=== PATIENT | female | born 1990 | race African-American/Black ===

== ENCOUNTER 2024-01-08 14:06 | Observation (INO) ==
[2024-01-08] MEDS: XOPENEX 1.25 MG/3 ML NEBULE NEB ONE ×4 (14:17→17:08)
--- NOTE | 2024-01-08 14:19 | DR.SOBA ---
HPI Time Seen Time Seen by Provider: 01/08/24 14:18 Complaints Chief Complaint Doctors Comments: Patient went to [facility] at approx. 6:00am today. She has a h/o asthma and was sob with chest tightness.Patient states that she was given an iv steroid, neb treatment and d/c home with: Albuterol/prednisone 50mg po daily,and an Rx for a nebulizer.Patient went to [facility] and was told that she could not get the machine because they did not have any at the facility in which she was shopping. Patient went home and began to have worsening sob,palpitations,accessory muscle use.Mother became concerned and brought patient to the ED. Patient has had these sxs for 2 days.Patient denies: fever,n,v,syncope,dizziness,lightheadedness. ROS Review of Systems Constitutional: No Symptoms Reported Eyes: No Symptoms Reported ENTM: No Symptoms Reported Respiratoy: Dry Cough, Short of Breath and Wheezing; negative Productive Cough Cardiovascular: Chest Pain (chest tightness) Gastrointestinal/Abdominal: No Symptoms Reported Genitourinary: No Symptoms Reported Neurological: No Symptoms Reported Musculoskeletal: No Symptoms Reported Integumentary: No Symptoms Reported Hematologic/Lymphatic: No Symptoms Reported Endocrine: No Symptoms Reported Psychiatric: No Symptoms Reported All Other Systems: Reviewed and Negative PE Vital Signs Vitals: Vital Signs Temperature 98.4 F Pulse Rate 107 Pulse Rate 119 Pulse Rate 121 Pulse Rate 114 Pulse Rate 120 Pulse Rate 115 Pulse Rate 104 Pulse Rate 125 Pulse Rate 120 Pulse Rate 118 Pulse Rate 123 Respiratory Rate 18 Blood Pressure 136/69 Blood Pressure 147/83 Blood Pressure 135/78 Blood Pressure 118/76 Blood Pressure 113/74 Blood Pressure 120/76 Blood Pressure 130/92 O2 Sat by Pulse Oximetry 100 O2 Sat by Pulse Oximetry 100 O2 Sat by Pulse Oximetry 97 O2 Sat by Pulse Oximetry 100 O2 Sat by Pulse Oximetry 95 O2 Sat by Pulse Oximetry 98 O2 Sat by Pulse Oximetry 92 O2 Sat by Pulse Oximetry 97 O2 Sat by Pulse Oximetry 99 O2 Sat by Pulse Oximetry 98 O2 Sat by Pulse Oximetry 92 General Limitations: No Limitations General Appearance: Alert and In Distress; negative In No Apparent Distress Head Head Exam: Normal Inspection Eyes Eye exam: Normal Appearance and PERRL ENT ENT Exam: Normal Exam Neck Neck Exam: Normal Inspection Chest Chest Inspection: Normal Inspection; negative Rash Respiratory Respiratory Exam: Accessory Muscle Use Respiratory Exam: Bilateral: Wheezing Cardiovascular Cardiovascular Exam: Normal Rhythm and Tachycardia Abdominal Exam Abdominal Exam: Normal Inspection, Normal Bowel Sounds and Soft Extremities Extremities Exam: Normal Inspection Back Back Exam: Normal Inspection Neurologic Neurological Exam: Alert and Oriented X3 Psychiatric Psychiatric Exam: Normal Affect and Normal Mood Skin Skin Exam: Warm, Dry, Intact and Normal Color MDM Differential Diagnosis Differential Diagnosis: Asthma, Pneumonia and Other (Electrolyte disorder) COURSE Treatment Treatment: Patient was brought to a monitored room IV access was initiated and patient had a heart rate of 123 therefore she received Xopenex neb treatment. Patient's patient states that she was still feeling short of breath and an ABG revealed a pH of 7.4/pO2 76/pCO2 32/O2 sat 95%. Patient had received the neb treatment prior to ABG collection. Subsequently patient began to complain of feeling more short of breath and her room air O2 sat decreased to the 80s. Patient was placed on 2 L O2 per nasal cannula. 16:[address] Jordan. He accepted patient to his service for an asthma exacerbation. Patient was given 2 additional Xopenex neb treatments and Solu-Medrol 40 mg IV. A review of patient's labs and tests revealed: Chest x-ray no acute process, WBC 11.7, BNP 14.4, CO2 20. Patient's EKG revealed a rate of 102 sinus tachycardia. [facility] Labs Reviewed 01/08/24 14:55 01/08/24 14:55 Laboratory: WBC 11.3 X10^3/uL (3.6-10.0) H 01/08/24 14:55 RBC 4.13 X10^6/uL (3.5-5.4) 01/08/24 14:55 Hgb 13.4 g/dL (12.0-16.0) 01/08/24 14:55 Hct 40.7 % (36.0-47.0) 01/08/24 14:55 MCV 98.6 fL (80.0-100.0) 01/08/24 14:55 MCH 32.5 pg (27.0-34.0) 01/08/24 14:55 MCHC 32.9 g/dL (33.0-35.0) L 01/08/24 14:55 RDW 13.8 % (11.6-16.5) 01/08/24 14:55 Plt Count 347 X10^3/uL (150.0-450.0) 01/08/24 14:55 Plt Count Comment Adequate (ADEQUATE) 01/08/24 14:55 MPV 8.8 fL (7.4-11.0) 01/08/24 14:55 Neut % (Auto) 91.4 % (42.0-75.0) H 01/08/24 14:55 Lymph % (Auto) 5.5 % (21.0-51.0) L 01/08/24 14:55 Forest % (Auto) 2.8 % (0.0-13.0) 01/08/24 14:55 Eos % (Auto) 0.0 % (0.9-2.9) L 01/08/24 14:55 Baso % (Auto) 0.3 % (0.2-1.0) 01/08/24 14:55 Neut # (Auto) 10.3 x10^3/uL (2.2-4.8) H 01/08/24 14:55 Lymph # (Auto) 0.6 X10^3/uL (1.3-2.9) L 01/08/24 14:55 Forest # (Auto) 0.3 x10^3/uL (0.3-0.8) 01/08/24 14:55 Eos # (Auto) 0.0 x10^3/uL (0.0-0.2) 01/08/24 14:55 Baso # (Auto) 0.0 X10^3/uL (0.0-0.1) 01/08/24 14:55 Absolute Nucleated RBC 0.1 /100WBC 01/08/24 14:55 Total Counted 100 01/08/24 14:55 Neutrophils % (Manual) 91 % (39-76) H 01/08/24 14:55 Lymphocytes % (Manual) 8 % (13-43) L 01/08/24 14:55 Monocytes % (Manual) 1 % (4-9) L 01/08/24 14:55 Plt Morphology Comment Normal (NORMAL) 01/08/24 14:55 RBC Morphology Normal (NORMAL) 01/08/24 14:55 Sample Site Lrad 01/08/24 14:31 ABG pH 7.410 (7.35-7.45) 01/08/24 14:31 ABG pCO2 32.0 mmHg (35.0-45.0) L 01/08/24 14:31 ABG pO2 76.0 mmHg (80.0-100.0) L 01/08/24 14:31 ABG HCO3 20.3 mmol/L (22-26) L 01/08/24 14:31 ABG O2 Saturation 95.0 % (90-100) 01/08/24 14:31 ABG Base Excess -3.5 mmol/L (-2.0-2.0) L 01/08/24 14:31 Coleman Test Pos 01/08/24 14:31 A-a Gradient 34.0 mmHg 01/08/24 14:31 FiO2 21.0 01/08/24 14:31 Blood Gas Comments Pt jeffry well. kg 01/08/24 14:31 Sodium 141 mmol/L (136-145) 01/08/24 14:55 Corrected Sodium 142 mmol/L (136-145) 01/08/24 14:55 Potassium 3.6 mmol/L (3.5-5.1) 01/08/24 14:55 Chloride 108 mmol/L (98-107) H 01/08/24 14:55 Carbon Dioxide 20.3 mmol/L (21-32) L 01/08/24 14:55 BUN 5 mg/dL (7-18) L 01/08/24 14:55 Creatinine 0.85 mg/dL (0.55-1.02) 01/08/24 14:55 Est GFR (MDRD) Af Amer > 60 (>60) 01/08/24 14:55 Est GFR (MDRD) Non-Af > 60 (>60) 01/08/24 14:55 Glucose 141 mg/dL (65-99) H 01/08/24 14:55 Calcium 9.2 mg/dL (8.5-10.1) 01/08/24 14:55 Corrected Calcium TNP 01/08/24 14:55 Total Bilirubin 0.30 mg/dL (0.2-1.0) 01/08/24 14:55 AST 11 Units/L (15-37) L 01/08/24 14:55 ALT 20 Units/L (12-78) 01/08/24 14:55 Alkaline Phosphatase 72 Units/L (46-116) 01/08/24 14:55 B-Natriuretic Peptide 14.4 pg/mL (0-79) 01/08/24 14:55 Total Protein 7.7 g/dL (6.4-8.2) 01/08/24 14:55 Albumin 3.6 g/dL (3.4-5.0) 01/08/24 14:55 Globulin 4.1 g/dL (2.5-4.5) 01/08/24 14:55 Albumin/Globulin Ratio 0.9 Ratio (1.1-2.1) L 01/08/24 14:55 Opioid Opioid Risk Tool Total: 0 Total Score Risk Category: Low Risk Copyright: Choco HERNANDEZ predicting aberrant behaviors Discharge Plan Diagnosis Discharge Problem: Asthma exacerbation Discharge Plan Patient Disposition: ADMITTED INPATIENT Condition: Stable Prescriptions: No Action [facility] Concerns: Post Hospitalization: new medications and changes needed to prevent readmission or further decline. Pt educated and given instructions on all concerns. Plan of Treatment: Continue with present treatment and follow up plan. Pt is to keep follow up appointment as instructed and take medications as ordered. Orders to Discharge Patient Discharge Orders: Transfer (Routine); Ordered 01/08/24 Ordered By: Blessing Whiteside Follow ups/Referrals Follow ups/Referrals: NFD,None [Primary Care Provider] - 3 days Instructions Stand Alone Forms: Post Hospital Follow Up Care
[2024-01-08 14:25] VITALS: BMI 28.7
[2024-01-08 14:36] LABS: ABG ALLEN TEST POS; ABG BASE EXCESS -3.5 mmol/L (-2.0-2.0); ABG HCO3 20.3 mmol/L (22-26)
[2024-01-08 15:15] LABS: BASOPHILS % (AUTO) 0.3 % (0.2-1.0); HEMATOCRIT 40.7 % (36.0-47.0); HEMOGLOBIN 13.4 g/dL (12.0-16.0); LYMPHOCYTES # (AUTO) 0.6 X10^3/uL (1.3-2.9); LYMPHOCYTES % (AUTO) 5.5 % (21.0-51.0); MEAN CORPUSCULAR HEMOGLOBIN 32.5 pg (27.0-34.0); MEAN CORPUSCULAR HGB CONC 32.9 g/dL (33.0-35.0); MEAN CORPUSCULAR VOLUME 98.6 fL (80.0-100.0); MEAN PLATELET VOLUME 8.8 fL (7.4-11.0); MONOCYTES # (AUTO) 0.3 x10^3/uL (0.3-0.8); MONOCYTES % (AUTO) 2.8 % (0.0-13.0); NEUTROPHILS # (AUTO) 10.3 x10^3/uL (2.2-4.8); NEUTROPHILS % (AUTO) 91.4 % (42.0-75.0); PLATELET COUNT 347 X10^3/uL (150.0-450.0); RED BLOOD COUNT 4.13 X10^6/uL (3.5-5.4); RED CELL DISTRIBUTION WIDTH 13.8 % (11.6-16.5); WHITE BLOOD COUNT 11.3 X10^3/uL (3.6-10.0)
[2024-01-08 15:27] LABS: ALANINE AMINOTRANSFERASE 20 Units/L (12-78); ALBUMIN 3.6 g/dL (3.4-5.0); ALKALINE PHOSPHATASE 72 Units/L (46-116); ASPARTATE AMINO TRANSFERASE 11 Units/L (15-37); BLOOD UREA NITROGEN 5 mg/dL (7-18); CALCIUM 9.2 mg/dL (8.5-10.1); CARBON DIOXIDE 20.3 mmol/L (21-32); CHLORIDE 108 mmol/L (98-107); COR NA(FOR HYPERGLY) 142 mmol/L (136-145); CREATININE 0.85 mg/dL (0.55-1.02); GLUCOSE 141 mg/dL (65-99); POTASSIUM 3.6 mmol/L (3.5-5.1); SODIUM 141 mmol/L (136-145); TOTAL PROTEIN 7.7 g/dL (6.4-8.2); eGFR NON BLACK RACES > 60 (>60)
[2024-01-08 15:34] LABS: PLATELET MORPHOLOGY COMMENT NORMAL (NORMAL)
--- NOTE | 2024-01-08 15:41 | EKG ---
Test Reason : tachycardia Blood Pressure : */* mmHG Vent. Rate : 102 BPM Atrial Rate : 102 BPM P-R Int : 138 ms QRS Dur : 76 ms QT Int : 328 ms P-R-T Axes : 74 -7 67 degrees QTc Int : 427 ms Sinus tachycardia Biatrial enlargement Septal infarct , age undetermined Abnormal ECG No previous ECGs available Confirmed by Efraín King MD ([id number]) on 01/10/2024 8:52:28 AM Referred By: Confirmed By: Efraín King MD
--- NOTE | 2024-01-08 15:51 | RAD ---
EXAM:CHEST, 1 VIEWHISTORY:SOB, HEADACHE, BACKPAIN 2 DAYS ; HX-ASTHMA SX- C-SECTIONCOMPARISON:NoneFINDINGS:Heart: The cardiomediastinal silhouette is normal in size.Lungs: No acute airspace disease.Pleural space: No conspicuous pneumothorax or effusion.Bones:The bony thorax appears age appropriate.IMPRESSION:1. No acute cardiopulmonary disease.THIS IS AN ELECTRONICALLY VERIFIED FINAL REPORT01/08/2024 3:39 PM - Electronically signed by Jeremy Dotson DO
[2024-01-08] MEDS ORDERED: XOPENEX 1.25 MG/3 ML NEBULE NEB ONE ×2 (16:26→17:00)
[2024-01-08] MEDS ORDERED: SOLU-Medrol 40 MG VIAL ONE (16:54)
[2024-01-08] MEDS: SOLU-Medrol 40 MG VIAL IVP SCH (17:10)
[2024-01-08] MEDS ORDERED: DUONEB 0.5 MG/3 MG (3 mL) NEB ONE (19:46)
[2024-01-08] MEDS: NS 1,000 ML IV 1,000 ML IV SCH (20:33)
[2024-01-08] MEDS: DUONEB 0.5 MG/3 MG (3 mL) NEB SCH (20:43)
[2024-01-08] MEDS: TYLENOL 325 MG TAB PO PRN (21:09)
[2024-01-09 06:06] LABS: BASOPHILS # (AUTO) 0.1 X10^3/uL (0.0-0.1); BASOPHILS % (AUTO) 0.4 % (0.2-1.0); HEMATOCRIT 37.1 % (36.0-47.0); HEMOGLOBIN 12.3 g/dL (12.0-16.0); LYMPHOCYTES # (AUTO) 1.2 X10^3/uL (1.3-2.9); LYMPHOCYTES % (AUTO) 6.2 % (21.0-51.0); MEAN CORPUSCULAR HEMOGLOBIN 32.8 pg (27.0-34.0); MEAN CORPUSCULAR HGB CONC 33.2 g/dL (33.0-35.0); MEAN CORPUSCULAR VOLUME 98.6 fL (80.0-100.0); MEAN PLATELET VOLUME 9.5 fL (7.4-11.0); MONOCYTES # (AUTO) 0.7 x10^3/uL (0.3-0.8); MONOCYTES % (AUTO) 3.4 % (0.0-13.0); NEUTROPHILS # (AUTO) 17.9 x10^3/uL (2.2-4.8); PLATELET COUNT 290 X10^3/uL (150.0-450.0); RED BLOOD COUNT 3.77 X10^6/uL (3.5-5.4); RED CELL DISTRIBUTION WIDTH 13.5 % (11.6-16.5)
[2024-01-09 06:13] LABS: ALANINE AMINOTRANSFERASE 20 Units/L (12-78); ALBUMIN 3.3 g/dL (3.4-5.0); ALKALINE PHOSPHATASE 59 Units/L (46-116); ASPARTATE AMINO TRANSFERASE 13 Units/L (15-37); BLOOD UREA NITROGEN 8 mg/dL (7-18); CARBON DIOXIDE 24.1 mmol/L (21-32); CHLORIDE 108 mmol/L (98-107); COR CA(FOR HYPOALB) 9.6 mg/dL (8.5-10.1); COR NA(FOR HYPERGLY) 143 mmol/L (136-145); CREATININE 0.59 mg/dL (0.55-1.02); GLUCOSE 117 mg/dL (65-99); POTASSIUM 4.5 mmol/L (3.5-5.1); SODIUM 143 mmol/L (136-145); TOTAL PROTEIN 6.9 g/dL (6.4-8.2); eGFR NON BLACK RACES > 60 (>60)
[2024-01-09 06:16] LABS: PLATELET MORPHOLOGY COMMENT NORMAL (NORMAL); WHITE BLOOD COUNT 19.9 X10^3/uL (3.6-10.0)
[2024-01-09] MEDS: ZyrTEC TAB 10 MG PO SCH (10:21)
[2024-01-09] MEDS: ZITHROMAX INJ 500 MG VIAL 500 MG in D5W 250 ML IV 250 ML IV SCH (10:22)
[2024-01-09] MEDS: SINGULAIR TAB 10 MG PO SCH (22:40)
[2024-01-10 05:43] LABS: BASOPHILS % (AUTO) 0.2 % (0.2-1.0); HEMATOCRIT 35.9 % (36.0-47.0); HEMOGLOBIN 11.8 g/dL (12.0-16.0); LYMPHOCYTES % (AUTO) 3.7 % (21.0-51.0); MEAN CORPUSCULAR HEMOGLOBIN 32.3 pg (27.0-34.0); MEAN PLATELET VOLUME 9.7 fL (7.4-11.0); MONOCYTES # (AUTO) 0.8 x10^3/uL (0.3-0.8); MONOCYTES % (AUTO) 2.9 % (0.0-13.0); NEUTROPHILS # (AUTO) 25.8 x10^3/uL (2.2-4.8); NEUTROPHILS % (AUTO) 93.2 % (42.0-75.0); PLATELET COUNT 284 X10^3/uL (150.0-450.0); RED BLOOD COUNT 3.66 X10^6/uL (3.5-5.4); RED CELL DISTRIBUTION WIDTH 13.8 % (11.6-16.5); WHITE BLOOD COUNT 27.7 X10^3/uL (3.6-10.0)
[2024-01-10 06:10] LABS: ALANINE AMINOTRANSFERASE 20 Units/L (12-78); ALKALINE PHOSPHATASE 56 Units/L (46-116); ASPARTATE AMINO TRANSFERASE 11 Units/L (15-37); BLOOD UREA NITROGEN 11 mg/dL (7-18); CALCIUM 8.4 mg/dL (8.5-10.1); CARBON DIOXIDE 23.2 mmol/L (21-32); CHLORIDE 108 mmol/L (98-107); COR CA(FOR HYPOALB) 9.2 mg/dL (8.5-10.1); CREATININE 0.67 mg/dL (0.55-1.02); GLUCOSE 102 mg/dL (65-99); POTASSIUM 4.4 mmol/L (3.5-5.1); SODIUM 141 mmol/L (136-145); TOTAL PROTEIN 6.4 g/dL (6.4-8.2); eGFR NON BLACK RACES > 60 (>60)
[2024-01-10 06:18] LABS: PLATELET MORPHOLOGY COMMENT NORMAL (NORMAL)
[2024-01-10 08:15] VITALS: RESP 18
[2024-01-10] MEDS: PREDNISONE TAB 10 MG PO SCH (08:57)
[2024-01-10 09:22] LABS: ABG ALLEN TEST POS; ABG BASE EXCESS -0.5 mmol/L (-2.0-2.0); ABG HCO3 22.9 mmol/L (22-26)
[2024-01-10] MEDS: LEVAQUIN PREMIX IV 750 MG 750 MG/150 ML BAG IV SCH (12:08)
[2024-01-10 12:12] VITALS: BP 116/74; PULSE 54; TEMP 98.2; O2SAT 99
--- NOTE | 2024-01-10 18:36 | DR.H&P ---
H&P History & Physical for Day of: H&P Date: 01/08/24 Chief Complaint Chief Complaint: SOB, CCC Allergies Allergies Allergy/AdvReac Type Severity Reaction Status Date / Time No Known Allergies Allergy Verified 01/08/24 15:38 History of Present Illness History of Present Illness: Patient went to [facility] at approx. 6:00am today. She has a h/o asthma and was sob with chest tightness.Patient states that she was given an iv steroid, neb treatment and d/c home with: Albuterol/prednisone 50mg po daily,and an Rx for a nebulizer.Patient went to [facility] pharmacy and was told that she could not get the machine because they did not have any at the facility in which she was shopping. Patient went home and began to have worsening sob,palpitations,accessory muscle use.Mother became concerned and brought patient to the ED. Patient has had these sxs for 2 days.Sean peña denies: fever,n,v,syncope,dizziness,lightheadedness. Past Medical History Past Medical History: Asthma Past Surgical History Surgical History: Family History Family Medical History: Diabetes Mellitus, Cancer and Hypertension Social History Does patient currently use any type of tobacco product: No Have you used tobacco products in the last 12 months: No Type of Tobacco Use: None Does any household member use tobacco: No Alcohol Use: None Drug Use: Marijuana Labs 01/10/24 05:02 01/10/24 05:02 Labs: 01/08/24 15:00 Blood Blood Culture - Preliminary 01/08/24 14:55 Blood Blood Culture - Preliminary 01/09/24 13:20 Sputum - Expectorated Sputum Sputum Culture - Preliminary 01/09/24 13:20 Sputum - Expectorated Sputum - Final Laboratory WBC 27.7 X10^3/uL (3.6-10.0) H 01/10/24 05:02 RBC 3.66 X10^6/uL (3.5-5.4) 01/10/24 05:02 Hgb 11.8 g/dL (12.0-16.0) L 01/10/24 05:02 Hct 35.9 % (36.0-47.0) L 01/10/24 05:02 MCV 98.0 fL (80.0-100.0) 01/10/24 05:02 MCH 32.3 pg (27.0-34.0) 01/10/24 05:02 MCHC 33.0 g/dL (33.0-35.0) 01/10/24 05:02 RDW 13.8 % (11.6-16.5) 01/10/24 05:02 Plt Count 284 X10^3/uL (150.0-450.0) 01/10/24 05:02 Plt Count Comment Adequate (ADEQUATE) 01/10/24 05:02 MPV 9.7 fL (7.4-11.0) 01/10/24 05:02 Neut % (Auto) 93.2 % (42.0-75.0) H 01/10/24 05:02 Lymph % (Auto) 3.7 % (21.0-51.0) L 01/10/24 05:02 Sequoyah % (Auto) 2.9 % (0.0-13.0) 01/10/24 05:02 Eos % (Auto) 0.0 % (0.9-2.9) L 01/10/24 05:02 Baso % (Auto) 0.2 % (0.2-1.0) 01/10/24 05:02 Neut # (Auto) 25.8 x10^3/uL (2.2-4.8) H 01/10/24 05:02 Lymph # (Auto) 1.0 X10^3/uL (1.3-2.9) L 01/10/24 05:02 Sequoyah # (Auto) 0.8 x10^3/uL (0.3-0.8) 01/10/24 05:02 Eos # (Auto) 0.0 x10^3/uL (0.0-0.2) 01/10/24 05:02 Baso # (Auto) 0.0 X10^3/uL (0.0-0.1) 01/10/24 05:02 Absolute Nucleated RBC 0.0 /100WBC 01/10/24 05:02 Total Counted 100 01/10/24 05:02 Neutrophils % (Manual) 92 % (39-76) H 01/10/24 05:02 Lymphocytes % (Manual) 5 % (13-43) L 01/10/24 05:02 Monocytes % (Manual) 3 % (4-9) L 01/10/24 05:02 Plt Morphology Comment Normal (NORMAL) 01/10/24 05:02 RBC Morphology Normal (NORMAL) 01/10/24 05:02 Sample Site Lrad 01/10/24 09:18 ABG pH 7.450 (7.35-7.45) 01/10/24 09:18 ABG pCO2 33.0 mmHg (35.0-45.0) L 01/10/24 09:18 ABG pO2 66.0 mmHg (80.0-100.0) L 01/10/24 09:18 ABG HCO3 22.9 mmol/L (22-26) 01/10/24 09:18 ABG O2 Saturation 94.0 % (90-100) 01/10/24 09:18 ABG Base Excess -0.5 mmol/L (-2.0-2.0) 01/10/24 09:18 Coleman Test Pos 01/10/24 09:18 A-a Gradient 42.0 mmHg 01/10/24 09:18 FiO2 21.0 01/10/24 09:18 Blood Gas Comments Pt jeffry well elj cdn 01/10/24 09:18 Sodium 141 mmol/L (136-145) 01/10/24 05:02 Corrected Sodium TNP 01/10/24 05:02 Potassium 4.4 mmol/L (3.5-5.1) 01/10/24 05:02 Chloride 108 mmol/L (98-107) H 01/10/24 05:02 Carbon Dioxide 23.2 mmol/L (21-32) 01/10/24 05:02 BUN 11 mg/dL (7-18) 01/10/24 05:02 Creatinine 0.67 mg/dL (0.55-1.02) 01/10/24 05:02 Est GFR (MDRD) Af Amer > 60 (>60) 01/10/24 05:02 Est GFR (MDRD) Non-Af > 60 (>60) 01/10/24 05:02 Glucose 102 mg/dL (65-99) H 01/10/24 05:02 Calcium 8.4 mg/dL (8.5-10.1) L 01/10/24 05:02 Corrected Calcium 9.2 mg/dL (8.5-10.1) 01/10/24 05:02 Total Bilirubin 0.30 mg/dL (0.2-1.0) 01/10/24 05:02 AST 11 Units/L (15-37) L 01/10/24 05:02 ALT 20 Units/L (12-78) 01/10/24 05:02 Alkaline Phosphatase 56 Units/L (46-116) 01/10/24 05:02 B-Natriuretic Peptide 14.4 pg/mL (0-79) 01/08/24 14:55 Total Protein 6.4 g/dL (6.4-8.2) 01/10/24 05:02 Albumin 3.0 g/dL (3.4-5.0) L 01/10/24 05:02 Globulin 3.4 g/dL (2.5-4.5) 01/10/24 05:02 Albumin/Globulin Ratio 0.9 Ratio (1.1-2.1) L 01/10/24 05:02 SARS-CoV-2 (PCR) Negative (NEGATIVE) 01/09/24 10:23 Influenza Type A (PCR) Negative (NEGATIVE) 01/09/24 10:23 Influenza Type B (PCR) Negative (NEGATIVE) 01/09/24 10:23 RSV (PCR) Negative (NEGATIVE) 01/09/24 10:23 Review of Systems Constitutional: Weakness Eyes: No Symptoms Reported ENT: Nose Congestion Respiratory: Cough, SOB with Excertion and Wheezing Cardiovascular: No Symptoms Reported Gastrointestinal: Nausea Genitourinary: No Symptoms Reported Musculoskeletal: No Symptoms Reported Neurological: Other (DIZZINESS) Physical Exam Vital Signs: Vital Signs Temperature 98.2 F Pulse Rate [Apical] 54 Respiratory Rate 18 Blood Pressure [Right Arm] 116/74 O2 Sat by Pulse Oximetry 99 Oriented: Normal Eyes: Normal Nose: Discharge Respiratory: Wheezes Throughout Cardiovascular: Tachycardia Auscultation: Bowel Sounds: Normal Tenderness: Normal Skin: Decreased Turgur Musculoskeletal: Normal Psychiatric: Anxiety Affect: Anxious Speech Pattern: Clear and Appropriate Assessment/Plan (1) Asthma exacerbation: Narrative Support Text: ADMIT, VIRAL RESP SWAB ON ADMISSION ABG ON ADMISSION CXR IV HYDRATION, SUPPLEMENATL O2 DUO NEBS, IV SOLU MEDROL VERIFY HOME MEDICATION BP CONTROL Status: Acute
== END 2024-01-10 14:35 | disposition home or self-care (01) ==
LOC: MED/SURG 14:06 → ER 14:06 → MED/SURG 17:32
PROVIDERS: ADMIT Internal Medicine; ATTEND Internal Medicine
DX: Z20.822 Contact with and (suspected) exposure to COVID-19; R00.0 Tachycardia, unspecified; R06.02 Shortness of breath; J45.901 Unspecified asthma with (acute) exacerbation; R07.89 Other chest pain

== ENCOUNTER 2025-02-07 20:53 | Observation (INO) ==
[2025-02-07 21:10] VITALS: BMI 29.0
[2025-02-07] MEDS: DUONEB 0.5 MG/3 MG (3 mL) NEB ONE ×2 (21:29→22:56)
--- NOTE | 2025-02-08 00:10 | DR.SOBA ---
HPI Time Seen Time Seen by Provider: 02/07/25 21:14 Primary Care Physician Primary Care Physician: nfd Complaints Chief Complaint Doctors Comments: 34 yo F, hx of asthma, c/o dyspnea, wheezing and cough for past 2d. Seen at [facility] earlier pa[facility], had neg CXR, was given duonebs, steroid & magnesium. States she was discharged, went home for ~1h, became severely short of breath again, and decided to come here. denies other symptoms. Denies fever. Denies chest pain. Denies leg pain or swelling. Denies known sick contacts. Chief Complaint:: pt stated her asthma has been bothering her for 3 days. she stated today is has been worse. she stated she has been short of breathe and having upper back pain. she stated she can not even walk a short distance without giving out. she stated she just left [facility] an was giving a breathing tx,steroids and magnesium but is still feeling worse and can't breathe. Self Treatment fo Chief Complaint: breathing tx ,magnesium and steroids at [facility] COVID-19 Coronavirus risk:travel/contact w/high risk person: No Has patient experienced Coronavirus symptoms: Yes Coronavirus symptoms experienced: Coughing and Shortness of Breath Source History Provided: Patient Mode of Arrival Mode of Arrival: Ambulatory Timing Onset of Chief Complaint: 02/05/25 PMH PMH Past Medical History: Yes Past Medical History: Asthma Past Surgical History: Yes Surgical History: Family History History of Family Medical Conditions: Yes Family Medical History: Diabetes Mellitus, Cancer and Hypertension Social History Does patient currently use any type of tobacco product: Yes Alcohol Use: None Do you use any recreational Drugs:: No Lives With: Family Lives Where: Home Travel Risk Coronavirus risk:travel/contact w/high risk person: No Has patient experienced Coronavirus symptoms: Yes Coronavirus symptoms experienced: Coughing and Shortness of Breath Infectious screening Have you traveled outside the country in the last 6 months?: No Isolation: Standard ROS Review of Systems Respiratoy: Moist Cough, Short of Breath and Wheezing All Other Systems: Reviewed and Negative PE Vital Signs Vitals: Vital Signs Temperature 98.8 F Pulse Rate 95 Pulse Rate 86 Pulse Rate 103 Pulse Rate 83 Pulse Rate 76 Pulse Rate 79 Pulse Rate 108 Pulse Rate 90 Pulse Rate 80 Pulse Rate 101 Pulse Rate 79 Pulse Rate 81 Pulse Rate 84 Pulse Rate 95 Pulse Rate 92 Respiratory Rate 28 Respiratory Rate 23 Respiratory Rate 24 Respiratory Rate 23 Respiratory Rate 20 Respiratory Rate 40 Respiratory Rate 27 Respiratory Rate 25 Respiratory Rate 25 Respiratory Rate 22 Respiratory Rate 20 Respiratory Rate 20 Respiratory Rate 20 Blood Pressure 127/66 Blood Pressure 118/67 Blood Pressure 105/61 Blood Pressure 118/67 Blood Pressure 118/76 Blood Pressure 134/75 O2 Sat by Pulse Oximetry 91 O2 Sat by Pulse Oximetry 91 O2 Sat by Pulse Oximetry 95 O2 Sat by Pulse Oximetry 99 O2 Sat by Pulse Oximetry 95 O2 Sat by Pulse Oximetry 92 O2 Sat by Pulse Oximetry 91 O2 Sat by Pulse Oximetry 93 O2 Sat by Pulse Oximetry 93 O2 Sat by Pulse Oximetry 95 O2 Sat by Pulse Oximetry 99 O2 Sat by Pulse Oximetry 94 O2 Sat by Pulse Oximetry 95 O2 Sat by Pulse Oximetry 91 General Limitations: No Limitations General Appearance: Alert and In No Apparent Distress Head Head Exam: Normal Inspection Eyes Eye exam: Normal Appearance ENT ENT Exam: Normal Exam Neck Neck Exam: Normal Inspection Chest Chest Inspection: Normal Inspection Respiratory Respiratory Exam: Accessory Muscle Use, Prolonged Expiratory Phase and Respiratory Distress Respiratory Exam: Bilateral: Wheezing Cardiovascular Cardiovascular Exam: Regular Rate and Normal Rhythm Abdominal Exam Abdominal Exam: Normal Inspection, Normal Bowel Sounds and Soft Extremities Extremities Exam: Normal Inspection Back Back Exam: Normal Inspection Neurologic Neurological Exam: Alert and Oriented X3 Psychiatric Psychiatric Exam: Normal Affect and Normal Mood Skin Skin Exam: Warm, Dry, Intact and Normal Color COURSE Reevaluation 1st: Unchanged 2nd: Unchanged 3rd: Improved (mild improvement, O2 sat remains ~93%, continues to have significant work of breathing & wheezing. Will admit for asthma exacerbation.) [facility]OR Labs Reviewed Laboratory Results Reviewed?: Yes Laboratory: SARS-CoV-2 (PCR) Negative (NEGATIVE) 02/07/25 21:28 Influenza Type A (PCR) Negative (NEGATIVE) 02/07/25 21:28 Influenza Type B (PCR) Negative (NEGATIVE) 02/07/25 21:28 RSV (PCR) Negative (NEGATIVE) 02/07/25 21:28 XRAY X-ray Results: Pt states she had a neg CXR performed at [facility]. Do not have that imgaging taken at [facility]. Opioid Opioid Risk Tool Age (Jitendra box if 16-45): Yes History of Preadolescent Sexual Abuse: No Total: 1 Total Score Risk Category: Low Risk Copyright: Choco HERNANDEZ predicting aberrant behaviors Discharge Plan Diagnosis Discharge Problem: Asthma exacerbation Discharge Plan Patient Disposition: ADMITTED INPATIENT Condition: Stable Prescriptions: No Action prednisone 10 mg Tablet 10 mg PO DAILY Qty: 18 0RF Rx Instructions: take 30mg po dailyx3, then 20mg po daily 3, then 10mg po daily x 3 take with food cetirizine 10 mg Tablet 10 mg PO DAILY Qty: 30 0RF montelukast 10 mg Tablet 10 mg PO HS Qty: 30 0RF albuterol sulfate [ProAir HFA] 90 mcg/actuation HFA aerosol inhaler 2 puff inhalation QID Qty: 8.5 0RF levofloxacin 500 mg Tablet 500 mg PO QDAY Qty: 7 0RF Health Concerns: Post Hospitalization: new medications and changes needed to prevent readmission or further decline. Pt educated and given instructions on all concerns. Plan of Treatment: Continue with present treatment and follow up plan. Pt is to keep follow up appointment as instructed and take medications as ordered. Orders to Discharge Patient Discharge Orders: Transfer (Routine); Ordered 02/07/25 Ordered By: Luis Hung Follow ups/Referrals Follow ups/Referrals: NFD,None [Primary Care Provider] - 3 days Instructions Stand Alone Forms: Find Help Web Site, Post Hospital Follow Up Care ADDITIONAL NOTES Additional Notes Additional Notes: Pt admitted to Dr Haynes
[2025-02-08] MEDS: NS 1,000 ML IV 1,000 ML IV SCH (00:30)
[2025-02-08 05:39] VITALS: TEMP 98.2
[2025-02-08 05:44] LABS: BASOPHILS # (AUTO) 0.1 X10^3/uL (0.0-0.1); HEMATOCRIT 38.1 % (36.0-47.0); HEMOGLOBIN 13.2 g/dL (12.0-16.0); LYMPHOCYTES # (AUTO) 0.9 X10^3/uL (1.3-2.9); MEAN CORPUSCULAR HEMOGLOBIN 33.3 pg (27.0-34.0); MEAN CORPUSCULAR HGB CONC 34.7 g/dL (33.0-35.0); MONOCYTES # (AUTO) 0.2 x10^3/uL (0.3-0.8); MONOCYTES % (AUTO) 1.8 % (0.0-13.0); NEUTROPHILS # (AUTO) 7.4 x10^3/uL (2.2-4.8); NEUTROPHILS % (AUTO) 87.2 % (42.0-75.0); PLATELET COUNT 352 X10^3/uL (150.0-450.0); RED BLOOD COUNT 3.97 X10^6/uL (3.5-5.4); RED CELL DISTRIBUTION WIDTH 13.3 % (11.6-16.5); WHITE BLOOD COUNT 8.5 X10^3/uL (3.6-10.0)
[2025-02-08] MEDS: DUONEB 0.5 MG/3 MG (3 mL) NEB SCH (05:50)
[2025-02-08 05:51] LABS: INR 1.17 (0.8-1.3)
[2025-02-08 05:52] LABS: APPEARANCE,URINE CLEAR (CLEAR); BLOOD/HEMOGLOBIN,URINE NEGATIVE (NEGATIVE); COLOR,URINE AMBER (YELLOW); GLUCOSE, URINE NEGATIVE (NEGATIVE); KETONES,URINE 3+ (NEGATIVE); PROTEIN,URINE 2+ (NEGATIVE)
[2025-02-08 05:53] LABS: BACTERIA,URINE TRACE /HPF (NEGATIVE); BILIRUBIN,URINE NEGATIVE (NEGATIVE); LEUKOCYTE ESTERASE ,URINE NEGATIVE (NEGATIVE); NITRITES,URINE NEGATIVE (NEGATIVE); RBC,URINE 0-2 /HPF (0-3); SQUAMOUS EPITHELIAL CELL,UR MANY /HPF (NEGATIVE); UROBILINOGEN,URINE NORMAL (NORMAL)
[2025-02-08 05:53] LABS: ALANINE AMINOTRANSFERASE 18 Units/L (12-78); ALBUMIN 3.7 g/dL (3.4-5.0); ALKALINE PHOSPHATASE 63 Units/L (46-116); ASPARTATE AMINO TRANSFERASE 11 Units/L (15-37); BLOOD UREA NITROGEN 8 mg/dL (7-18); CALCIUM 9.4 mg/dL (8.5-10.1); CHLORIDE 106 mmol/L (98-107); COR NA(FOR HYPERGLY) 142 mmol/L (136-145); CREATININE 0.84 mg/dL (0.55-1.02); GLUCOSE 133 mg/dL (65-99); MAGNESIUM 2.1 mg/dL (2.0-2.9); POTASSIUM 4.1 mmol/L (3.5-5.1); SODIUM 141 mmol/L (136-145); TOTAL PROTEIN 7.4 g/dL (6.4-8.2); eGFR NON BLACK RACES > 60 (>60)
[2025-02-08 06:03] LABS: BAND NEUTROPHILS % 2 % (0-10); PLATELET MORPHOLOGY COMMENT NORMAL (NORMAL)
[2025-02-08] MEDS: TYLENOL 325 MG TAB PO PRN (06:52)
[2025-02-08] MEDS: TYLENOL 325 MG TAB PO ONE (07:21)
[2025-02-08 08:02] VITALS: BP 114/78; PULSE 75; RESP 24; O2SAT 96
[2025-02-08] MEDS: DECADRON INJ IVP SCH (08:07)
[2025-02-08] MEDS: PULMICORT NEB TX 0.5 MG NEB SCH (08:26)
[2025-02-08] MEDS ORDERED: DUONEB 0.5 MG/3 MG (3 mL) NEB SCH (09:00)
--- NOTE | 2025-02-08 09:13 | DR.SSS ---
SHORT STAY SUMMARY Admission Date Date of Admission: 02/08/25 Discharge Date Discharge Date: 02/08/25 Admission Diagnoses Admission Diagnoses: Asthma exacerbation Discharge Diagnoses Discharge Diagnoses: Asthma exacerbation Chief Complaint Chief Complaint: Shortness of breath History of Present Illness History of Present Illness: Patient presented to the ER from home yesterday after being evaluated in another facility. She received steroids, magnesium, and neb treatments for an asthma exacerbation and was sent home. Chest x-ray showed no infiltrates or effusions. After arriving at home, she noticed her breathing worsening. She is currently without insurance and only has a rescue inhaler. She presented to this ER and was admitted for severe asthma exacerbation. Workup otherwise benign. ROS: 12 point ROS negative except as noted in HPI. PE: Well-developed, well-nourished female in no acute distress. Head NCAT, EOMI, hearing intact conversation, trachea midline, cervical spine with full range of motion. Heart regular rate rhythm. Expiratory wheezing throughout all lung yang with fair air movement. Belly is soft and nontender with bowel sounds present. Normal range of motion of her thoracic and lumbar spines. No swelling of her extremities. Mood and affect are appropriate. Past Medical History Past Medical History: Asthma Past Surgical History Surgical History: Allergies Allergies Allergy/AdvReac Type Severity Reaction Status Date / Time No Known Allergies Allergy Verified 02/07/25 23:56 Medications Home Medications: No Known Allergies Allergy (Verified 02/07/25 23:56) CONTINUE taking the following medications albuterol sulfate 2.5 mg/3 mL (0.083 %) solution for nebulization 1 mg inhalation QID PRN wheezing 02/08/25 [History] albuterol sulfate 90 mcg/actuation aerosol inhaler 2 puff inhalation QID PRN wheezing 02/08/25 [History] Family History Family Medical History: Diabetes Mellitus, Cancer and Hypertension Social History Does patient currently use any type of tobacco product: Yes Type of Tobacco Use: Cigarettes Does any household member use tobacco: Yes Alcohol Use: None Drug Use: None Physical Exam Vital Signs: Last Vital Signs Temp 98.2 F 02/08/25 04:00 Pulse 75 02/08/25 08:00 Resp 24 02/08/25 08:00 BP 114/78 02/08/25 08:00 Pulse Ox 96 02/08/25 08:00 O2 Del Method Room Air 02/08/25 08:12 O2 Flow Rate 2 02/08/25 00:35 FiO2 28 02/08/25 00:35 Labs Labs: Laboratory Last Values WBC 8.5 X10^3/uL (3.6-10.0) 02/08/25 05:20 RBC 3.97 X10^6/uL (3.5-5.4) 02/08/25 05:20 Hgb 13.2 g/dL (12.0-16.0) 02/08/25 05:20 Hct 38.1 % (36.0-47.0) 02/08/25 05:20 MCV 96.0 fL (80.0-100.0) 02/08/25 05:20 MCH 33.3 pg (27.0-34.0) 02/08/25 05:20 MCHC 34.7 g/dL (33.0-35.0) 02/08/25 05:20 RDW 13.3 % (11.6-16.5) 02/08/25 05:20 Plt Count 352 X10^3/uL (150.0-450.0) 02/08/25 05:20 Plt Count Comment Adequate (ADEQUATE) 02/08/25 05:20 MPV 9.0 fL (7.4-11.0) 02/08/25 05:20 Neut % (Auto) 87.2 % (42.0-75.0) H 02/08/25 05:20 Lymph % (Auto) 10.0 % (21.0-51.0) L 02/08/25 05:20 [place] % (Auto) 1.8 % (0.0-13.0) 02/08/25 05:20 Eos % (Auto) 0.0 % (0.9-2.9) L 02/08/25 05:20 Baso % (Auto) 1.0 % (0.2-1.0) 02/08/25 05:20 Neut # (Auto) 7.4 x10^3/uL (2.2-4.8) H 02/08/25 05:20 Lymph # (Auto) 0.9 X10^3/uL (1.3-2.9) L 02/08/25 05:20 [place] # (Auto) 0.2 x10^3/uL (0.3-0.8) L 02/08/25 05:20 Eos # (Auto) 0.0 x10^3/uL (0.0-0.2) 02/08/25 05:20 Baso # (Auto) 0.1 X10^3/uL (0.0-0.1) 02/08/25 05:20 Absolute Nucleated RBC 0.0 /100WBC 02/08/25 05:20 Total Counted 100 02/08/25 05:20 Neutrophils % (Manual) 83 % (39-76) H 02/08/25 05:20 Band Neutrophils % 2 % (0-10) 02/08/25 05:20 Lymphocytes % (Manual) 14 % (13-43) 02/08/25 05:20 Monocytes % (Manual) 1 % (4-9) L 02/08/25 05:20 Plt Morphology Comment Normal (NORMAL) 02/08/25 05:20 RBC Morphology Normal (NORMAL) 02/08/25 05:20 PT 14.7 SECONDS (11.8-14.3) 02/08/25 05:20 INR Target Range - 02/08/25 05:20 INR 1.17 (0.8-1.3) 02/08/25 05:20 APTT 29.8 SECONDS (22.9-36.5) 02/08/25 05:20 PTT Comment - 02/08/25 05:20 Sodium 141 mmol/L (136-145) 02/08/25 05:20 Corrected Sodium 142 mmol/L (136-145) 02/08/25 05:20 Potassium 4.1 mmol/L (3.5-5.1) 02/08/25 05:20 Chloride 106 mmol/L (98-107) 02/08/25 05:20 Carbon Dioxide 23.0 mmol/L (21-32) 02/08/25 05:20 BUN 8 mg/dL (7-18) 02/08/25 05:20 Creatinine 0.84 mg/dL (0.55-1.02) 02/08/25 05:20 Est GFR (MDRD) Af Amer > 60 (>60) 02/08/25 05:20 Est GFR (MDRD) Non-Af > 60 (>60) 02/08/25 05:20 Glucose 133 mg/dL (65-99) H 02/08/25 05:20 Calcium 9.4 mg/dL (8.5-10.1) 02/08/25 05:20 Corrected Calcium TNP 02/08/25 05:20 Magnesium 2.1 mg/dL (2.0-2.9) 02/08/25 05:20 Total Bilirubin 0.50 mg/dL (0.2-1.0) 02/08/25 05:20 AST 11 Units/L (15-37) L 02/08/25 05:20 ALT 18 Units/L (12-78) 02/08/25 05:20 Alkaline Phosphatase 63 Units/L (46-116) 02/08/25 05:20 Total Protein 7.4 g/dL (6.4-8.2) 02/08/25 05:20 Albumin 3.7 g/dL (3.4-5.0) 02/08/25 05:20 Globulin 3.7 g/dL (2.5-4.5) 02/08/25 05:20 Albumin/Globulin Ratio 1.0 Ratio (1.1-2.1) L 02/08/25 05:20 Specimen Type Clean catch urine 02/08/25 05:25 Urine Color Gely (YELLOW) 02/08/25 05:25 Urine Appearance Clear (CLEAR) 02/08/25 05:25 Urine pH 6.0 (5.0 - 8.0) 02/08/25 05:25 Ur Specific Jacob 1.030 (1.000-1.030) 02/08/25 05:25 Urine Protein 2+ (NEGATIVE) 02/08/25 05:25 Urine Glucose (UA) Negative (NEGATIVE) 02/08/25 05:25 Urine Ketones 3+ (NEGATIVE) 02/08/25 05:25 Urine Blood Negative (NEGATIVE) 02/08/25 05:25 Urine Nitrite Negative (NEGATIVE) 02/08/25 05:25 Urine Bilirubin Negative (NEGATIVE) 02/08/25 05:25 Urine Urobilinogen Normal (NORMAL) 02/08/25 05:25 Ur Leukocyte Esterase Negative (NEGATIVE) 02/08/25 05:25 Urine RBC 0-2 /HPF (0-3) 02/08/25 05:25 Urine WBC 3-5 /HPF (0-5) 02/08/25 05:25 Ur Squamous Epith Cells Many /HPF (NEGATIVE) 02/08/25 05:25 Amorphous Sediment 1+ /HPF (NEGATIVE) 02/08/25 05:25 Urine Bacteria Trace /HPF (NEGATIVE) 02/08/25 05:25 Urine Mucus Moderate /HPF (NEGATIVE) 02/08/25 05:25 Ur Culture Indicated? No/not indicated 02/08/25 05:25 SARS-CoV-2 (PCR) Negative (NEGATIVE) 02/07/25 21:28 Influenza Type A (PCR) Negative (NEGATIVE) 02/07/25 21:28 Influenza Type B (PCR) Negative (NEGATIVE) 02/07/25 21:28 RSV (PCR) Negative (NEGATIVE) 02/07/25 21:28 Hospital Course Hospital Course: Patient was admitted and given scheduled DuoNebs. She did receive a dose of Decadron this morning. She was able to sleep without oxygen for a few hours. She was able to ambulate with sats only dropping down to 92%. She felt much more comfortable and was requesting to go home. Discharged in improved, stable condition with prescription for oral steroids and Advair. She was instructed to continue to use her rescue inhaler and to establish with a PCP. Discharge Medications Discharge Medications: Home Medication List albuterol sulfate 2.5 mg/3 mL (0.083 %) solution for nebulization 1 mg inhalati on QID PRN wheezing 02/08/25 [History] albuterol sulfate 90 mcg/actuation aerosol inhaler 2 puff inhalation QID PRN wheezing 02/08/25 [History] Prescriptions: Discharge Plan Discharge Plan Patient Disposition: 01 HOME, SELF-CARE Condition: Stable Health Concerns: Post Hospitalization: new medications and changes needed to prevent readmission or further decline. Pt educated and given instructions on all concerns. Plan of Treatment: Continue with present treatment and follow up plan. Pt is to keep follow up appointment as instructed and take medications as ordered. Prescription drug monitoring program results: PDMP was not reviewed Prescriptions: New prednisone 20 mg tablet 40 mg PO QDAY Qty: 10 0RF fluticasone propion-salmeterol [Advair Diskus] 250-50 mcg/dose blister with device 1 inh inhalation BID Qty: 60 0RF Continued albuterol sulfate 2.5 mg /3 mL (0.083 %) solution for nebulization 1 mg inhalation QID PRN (Reason: wheezing) albuterol sulfate 90 mcg/actuation HFA aerosol inhaler 2 puff INHALATION QID PRN (Reason: wheezing) Orders to Discharge Patient Discharge Orders: Discharge (Routine); Ordered 02/08/25 Ordered By: Usman Haynes Follow ups/Referrals Follow ups/Referrals: NFD,None [Primary Care Provider] - 3 days Instructions Stand Alone Forms: Excuse From Work or School, Find Help Web Site, Post Hospital Follow Up Care
== END 2025-02-08 11:30 | disposition home or self-care (01) ==
LOC: ER 20:53 → U 20:53
PROVIDERS: ADMIT Family Medicine; ATTEND Family Medicine
DX: Z72.0 Tobacco use; Z03.818 Encounter for observation for suspected exposure to other biological agents ruled out; R73.09 Other abnormal glucose; R06.02 Shortness of breath; J45.51 Severe persistent asthma with (acute) exacerbation

== ENCOUNTER 2025-08-22 16:56 | Inpatient (IN) ==
[2025-08-22 17:18] VITALS: BMI 32.3
--- NOTE | 2025-08-22 17:19 | DR.SOBA ---
HPI Time Seen Time Seen by Provider: 08/22/25 17:16 Primary Care Physician Primary Care Physician: NFD Complaints Chief Complaint Doctors Comments: 34 yo F, hx of asthma, c/o asthma exacerbation with increased work of breathing, wheezing and dry cough for the past 24h, worse today. [facility], symptoms not improved. Chief Complaint:: Patient states that she just was discharged from [place] ER for an asthma flare up, and still cannot breath. She states that while she was there she was given IV steroids, breathing treatments, a chest x-ray, and was swabbed, but the shortness of breath remains. She states that she come here to see if we can help her. She states that she has to sit straight up or she cannot breathe, and also states that she has been wheezing since leaving [place]. COVID-19 Coronavirus risk:travel/contact w/high risk person: No Has patient experienced Coronavirus symptoms: No Coronavirus symptoms experienced: Shortness of Breath Source History Provided: Patient Mode of Arrival Mode of Arrival: Wheelchair Timing Onset of Chief Complaint: 08/22/25 PMH PMH Past Medical History: Yes Past Medical History: Asthma Past Surgical History: Yes Surgical History: Family History History of Family Medical Conditions: Yes Family Medical History: Diabetes Mellitus, Cancer and Hypertension Social History Does patient currently use any type of tobacco product: Yes Have you used tobacco products in the last 12 months: Yes Type of Tobacco Use: Cigarettes Does any household member use tobacco: Yes Alcohol Use: None Do you use any recreational Drugs:: No Lives With: Family Lives Where: Home Travel Risk Coronavirus risk:travel/contact w/high risk person: No Has patient experienced Coronavirus symptoms: No Coronavirus symptoms experienced: Shortness of Breath Infectious screening In the last 2 months have you had wt loss of >10#?: NO Have you had fever, night sweats or hemotysis?: No Have you traveled outside the country in the last 6 months?: No Isolation: Standard ROS Review of Systems Respiratoy: Non-Productive Cough, Short of Breath and Wheezing All Other Systems: Reviewed and Negative PE Vital Signs Vitals: Vital Signs Temperature 98.9 F Pulse Rate 139 Pulse Rate 137 Pulse Rate 141 Pulse Rate 131 Pulse Rate 102 Pulse Rate 111 Pulse Rate 120 Pulse Rate 124 Pulse Rate 103 Pulse Rate 109 Pulse Rate 127 Respiratory Rate 21 Respiratory Rate 22 Respiratory Rate 16 Respiratory Rate 22 Respiratory Rate 22 Respiratory Rate 24 Respiratory Rate 25 Respiratory Rate 25 Blood Pressure 172/80 Blood Pressure 159/74 Blood Pressure 145/87 Blood Pressure 176/90 O2 Sat by Pulse Oximetry 91 O2 Sat by Pulse Oximetry 94 O2 Sat by Pulse Oximetry 98 O2 Sat by Pulse Oximetry 99 O2 Sat by Pulse Oximetry 100 O2 Sat by Pulse Oximetry 92 O2 Sat by Pulse Oximetry 93 O2 Sat by Pulse Oximetry 93 O2 Sat by Pulse Oximetry 92 General Limitations: No Limitations General Appearance: Alert and In No Apparent Distress Head Head Exam: Normal Inspection Eyes Eye exam: Normal Appearance ENT ENT Exam: Normal Exam Neck Neck Exam: Normal Inspection Chest Chest Inspection: Normal Inspection Respiratory Respiratory Exam: Prolonged Expiratory Phase Respiratory Exam: Bilateral: Wheezing, Upper: Wheezing and Lower: Wheezing Cardiovascular Cardiovascular Exam: Regular Rate and Normal Rhythm Extremities Extremities Exam: Normal Inspection Back Back Exam: Normal Inspection Neurologic Neurological Exam: Alert and Oriented X3 Psychiatric Psychiatric Exam: Normal Affect and Normal Mood Skin Skin Exam: Warm, Dry, Intact and Normal Color COURSE Critical Care Notes Total Time (mins): 40 Critical Diagnosis: Respiratory Failure Critical Interventions: Airway Management, BiPAP implementation ROR Labs Reviewed Laboratory Results Reviewed?: Yes 08/22/25 17:29 08/22/25 17:29 Laboratory: WBC 15.8 X10^3/uL (3.6-10.0) H 08/22/25 17:29 RBC 4.42 X10^6/uL (3.5-5.4) 08/22/25 17:29 Hgb 14.0 g/dL (12.0-16.0) 08/22/25 17:29 Hct 41.9 % (36.0-47.0) 08/22/25 17:29 MCV 94.7 fL (80.0-100.0) 08/22/25 17:29 MCH 31.8 pg (27.0-34.0) 08/22/25 17:29 MCHC 33.5 g/dL (33.0-35.0) 08/22/25 17:29 RDW 14.2 % (11.6-16.5) 08/22/25 17:29 Plt Count 334 X10^3/uL (150.0-450.0) 08/22/25 17:29 MPV 10.2 fL (7.4-11.0) 08/22/25 17: Neut % (Auto) 96.4 % (42.0-75.0) H 08/22/25 17: Lymph % (Auto) 2.8 % (21.0-51.0) L 08/22/25 17:29 [place] % (Auto) 0.4 % (0.0-13.0) 08/22/25 17: Eos % (Auto) 0.0 % (0.9-2.9) L 08/22/25 17: Baso % (Auto) 0.4 % (0.2-1.0) 08/22/25 17: Neut # (Auto) 15.3 x10^3/uL (2.2-4.8) H 08/22/25 17: Lymph # (Auto) 0.4 X10^3/uL (1.3-2.9) L 08/22/25 17:29 [place] # (Auto) 0.1 x10^3/uL (0.3-0.8) L 08/22/25 17: Eos # (Auto) 0.0 x10^3/uL (0.0-0.2) 08/22/25 17: Baso # (Auto) 0.1 X10^3/uL (0.0-0.1) 08/22/25 17: Absolute Nucleated RBC 0.0 /100WBC 08/22/25 17:29 Sodium 139 mmol/L (136-145) 08/22/25 17:29 Corrected Sodium 140 mmol/L (136-145) 08/22/25 17: Potassium 3.8 mmol/L (3.5-5.1) 08/22/25 17: Chloride 106 mmol/L (98-107) 08/22/25 17:29 Carbon Dioxide 18.2 mmol/L (21-32) L 08/22/25 17:29 BUN 5 mg/dL (7-18) L 08/22/25 17:29 Creatinine 0.79 mg/dL (0.55-1.02) 08/22/25 17:29 Est GFR (MDRD) Af Amer > 60 (>60) 08/22/25 17:29 Est GFR (MDRD) Non-Af > 60 (>60) 08/22/25 17:29 Glucose 153 mg/dL (65-99) H 08/22/25 17:29 Calcium 9.3 mg/dL (8.5-10.1) 08/22/25 17:29 HCG, Qual Negative <10 mIU/mL 08/22/25 17:29 Opioid Opioid Risk Tool Age (Jitendra box if 16-45): Yes History of Preadolescent Sexual Abuse: No Total: 1 Total Score Risk Category: Low Risk Copyright: Choco HERNANDEZ predicting aberrant behaviors Discharge Plan Diagnosis Discharge Problem: Asthma exacerbation, Respiratory failure, Bilevel positive airway pressure (BPAP) dependence Discharge Plan Patient Disposition: ADMITTED INPATIENT Condition: Stable Prescriptions: No Action [facility] Health Concerns: Post Hospitalization: new medications and changes needed to prevent readmission or further decline. Pt educated and given instructions on all concerns. Plan of Treatment: Continue with present treatment and follow up plan. Pt is to keep follow up appointment as instructed and take medications as ordered. Orders to Discharge Patient Discharge Orders: Transfer (Routine); Ordered 08/22/25 Ordered By: Luis Hung Follow ups/Referrals Follow ups/Referrals: NFD,None [Primary Care Provider] - 3 days Instructions Stand Alone Forms: Find Help Web Site, Post Hospital Follow Up Care Print Language: SWAZI Provider Note Additional Notes pt accepted by Dr Richardson
[2025-08-22] MEDS: MAGNESIUM SULFATE 50% INJ VIAL 2 G in NS 100 ML IV 100 ML IV STA (17:30)
[2025-08-22] MEDS: DUONEB 0.5 MG/3 MG (3 mL) NEB ONE (18:09)
[2025-08-22] MEDS: ATIVAN INJ 2 MG VIAL IVP ONE (18:57)
[2025-08-22 19:18] LABS: MEAN PLATELET VOLUME 10.2 fL (7.4-11.0); RED CELL DISTRIBUTION WIDTH 14.2 % (11.6-16.5)
[2025-08-22 19:20] LABS: COR NA(FOR HYPERGLY) 140 mmol/L (136-145); CREATININE 0.79 mg/dL (0.55-1.02); eGFR NON BLACK RACES > 60 (>60)
[2025-08-22 19:25] LABS: SERUM PREGNANCY TEST, QUAL NEGATIVE <10 mIU/mL
[2025-08-22 19:38] LABS: BAND NEUTROPHILS % 1 % (0-10)
[2025-08-22 19:42] LABS: PLATELET MORPHOLOGY COMMENT NORMAL (NORMAL)
[2025-08-22] MEDS ORDERED: ZOFRAN TAB 4 MG PO PRN (20:26)
[2025-08-22] MEDS ORDERED: CONSULT PHARMACY - POTASSIUM & MAGNESIUM XX SCH (20:26)
[2025-08-22] MEDS ORDERED: NORCO 5/325 MG TAB PO PRN (20:26)
[2025-08-22] MEDS ORDERED: ULTRAM PO PRN (20:26)
[2025-08-22] MEDS ORDERED: SALINE 0.9% 3 ML NEB TX ONE (20:31)
[2025-08-22] MEDS ORDERED: PULMICORT NEB TX 0.5 MG NEB ONE (20:31)
[2025-08-22] MEDS ORDERED: XOPENEX 1.25 MG/3 ML NEBULE NEB ONE (20:31)
--- NOTE | 2025-08-22 20:52 | RAD ---
EXAM: CHEST, 1 VIEW HISTORY: dyspnea; COMPARISON: January 08, 2024 chest x-ray FINDINGS: The trachea is midline. The cardiac silhouette is unremarkable. Central peribronchial wall thickening is seen which would imply central bronchitis. The remaining lungs are clear without focal infiltrate or effusion. No pneumothorax is identified. There is no evidence for CHF or pulmonary edema. The bony thorax is unremarkable. IMPRESSION: Chest findings suggesting central bronchitis/small airways disease without evidence for lobar infiltrates or effusions. THIS IS AN ELECTRONICALLY VERIFIED FINAL REPORT 08/22/2025 8:48 PM - Electronically signed by Jose Alejandro Bailey MD
[2025-08-22] MEDS: XOPENEX 1.25 MG/3 ML NEBULE NEB SCH (21:00)
[2025-08-22] MEDS: PULMICORT NEB TX 0.5 MG NEB SCH (21:00)
[2025-08-22] MEDS: NS 1,000 ML IV 1,000 ML IV SCH (21:03)
[2025-08-22] MEDS ORDERED: ZITHROMAX INJ 500 MG VIAL IV ONE (22:08)
[2025-08-22] MEDS ORDERED: NS 250 ML IV 250 ML IV ONE (22:10)
[2025-08-22] MEDS: ATIVAN INJ 2 MG VIAL IVP PRN (22:31)
[2025-08-22] MEDS: ZITHROMAX INJ 500 MG VIAL 500 MG in NS 250 ML IV 250 ML IV SCH (22:35)
[2025-08-22 22:37] LABS: ABG ALLEN TEST POS; ABG BASE EXCESS -5.3 mmol/L (-2.0-2.0); ABG HCO3 19.1 mmol/L (22-26); ABG OXYGEN SATURATION 91.0 % (90-100); ABG PCO2 33.0 mmHg (35.0-45.0); ABG PH 7.370 (7.35-7.45); ABG PO2 62.0 mmHg (80.0-100.0)
[2025-08-22] MEDS: ZOFRAN INJ 4 MG VIAL IVP PRN (22:54)
[2025-08-22] MEDS: K-DUR TAB 20 MEQ PO SCH (22:59)
[2025-08-23] MEDS: MORPHINE SULFATE INJ 4 MG IVP PRN (00:58)
[2025-08-23 05:24] LABS: MEAN PLATELET VOLUME 9.3 fL (7.4-11.0); RED CELL DISTRIBUTION WIDTH 14.1 % (11.6-16.5)
[2025-08-23 05:28] LABS: COR NA(FOR HYPERGLY) 140 mmol/L (136-145); CREATININE 0.71 mg/dL (0.55-1.02); eGFR NON BLACK RACES > 60 (>60)
[2025-08-23 05:39] LABS: PLATELET MORPHOLOGY COMMENT NORMAL (NORMAL)
[2025-08-23] MEDS ORDERED: COLACE CAP 100 MG PO SCH (09:00)
[2025-08-23] MEDS: MAGNESIUM SULFATE 1 GRAM/100 mL PREMIX 1 G/100 ML BAG IV ONE (09:19)
--- NOTE | 2025-08-23 10:01 | DR.H&P ---
H&P History & Physical for Day of: H&P Date: 08/23/25 Chief Complaint Chief Complaint: shortness of breath wheezing History of Present Illness History of Present Illness: Patient is a 34-year-old female with a past medical history of asthma presenting with acute respiratory failure due to asthma exacerbation. She reports that symptoms have been getting worse for the past few days. She did go to ER in [place] and was discharged after receiving steroids and breathing treatments. She came to [facility] ER due to no improvement. She was noted to be in significant respiratory distress and was placed on a BiPAP. She was given magnesium, started on bronchodilators. Labs/imaging: WBC 17.3, hemoglobin 13.8, platelets 295, sodium 138, potassium 4.6, creatinine 0.71, glucose 163, ABG: pH 7.37, pCO2 33, PO262, HCO3 19, O2 sat 91% on FiO2 of 32%. AIT pending, chest x-ray revealed Central bronchitis/small airway disease without evidence for lobar infiltrates or effusions. Patient was admitted for acute respiratory failure due to asthma exacerbation. She is on BiPAP, feels improvement, and we will de-escalate to heated high flow oxygen. Will order Solu-Medrol 40 mg Q8HH. Scheduled bronchodilators. Will also order another dose of magnesium. Wean/titrate oxygen as tolerated. As needed medications have been added for anxiety and air hunger. Will also order daily IV azithromycin. Otherwise continue current treatment plan. Continue closely monitor and follow-up labs/imaging. Time spent for clinical assessment, reviewing labs/imaging, physical exam, decision making and documentation greater than 45 mins. Past Medical History Past Medical History: Asthma Past Surgical History Surgical History: Family History Family Medical History: Diabetes Mellitus, Cancer and Hypertension Social History Does patient currently use any type of tobacco product: Yes Have you used tobacco products in the last 12 months: Yes Type of Tobacco Use: Cigarettes Does any household member use tobacco: Yes Alcohol Use: None Drug Use: None Medications Home Medications: Home Medications Medication Instructions Recorded Confirmed Type NK 08/22/25 08/22/25 History Allergies Allergies Allergy/AdvReac Type Severity Reaction Status Date / Time No Known Allergies Allergy Verified 02/07/25 23:56 Labs 08/23/25 04:54 08/23/25 04:54 Labs: Laboratory WBC 17.3 X10^3/uL (3.6-10.0) H 08/23/25 04:54 RBC 4.31 X10^6/uL (3.5-5.4) 08/23/25 04:54 Hgb 13.8 g/dL (12.0-16.0) 08/23/25 04:54 Hct 40.9 % (36.0-47.0) 08/23/25 04:54 MCV 94.8 fL (80.0-100.0) 08/23/25 04:54 MCH 32.0 pg (27.0-34.0) 08/23/25 04:54 MCHC 33.7 g/dL (33.0-35.0) 08/23/25 04:54 RDW 14.1 % (11.6-16.5) 08/23/25 04:54 Plt Count 295 X10^3/uL (150.0-450.0) 08/23/25 04:54 Plt Count Comment Adequate (ADEQUATE) 08/23/25 04:54 MPV 9.3 fL (7.4-11.0) 08/23/25 04:54 Neut % (Auto) 91.3 % (42.0-75.0) H 08/23/25 04:54 Lymph % (Auto) 4.7 % (21.0-51.0) L 08/23/25 04:54 [place] % (Auto) 3.7 % (0.0-13.0) 08/23/25 04:54 Eos % (Auto) 0.0 % (0.9-2.9) L 08/23/25 04:54 Baso % (Auto) 0.3 % (0.2-1.0) 08/23/25 04:54 Neut # (Auto) 15.7 x10^3/uL (2.2-4.8) H 08/23/25 04:54 Lymph # (Auto) 0.8 X10^3/uL (1.3-2.9) L 08/23/25 04:54 [place] # (Auto) 0.6 x10^3/uL (0.3-0.8) 08/23/25 04:54 Eos # (Auto) 0.0 x10^3/uL (0.0-0.2) 08/23/25 04:54 Baso # (Auto) 0.1 X10^3/uL (0.0-0.1) 08/23/25 04:54 Absolute Nucleated RBC 0.0 /100WBC 08/23/25 04:54 Total Counted 100 08/23/25 04:54 Neutrophils % (Manual) 90 % (39-76) H 08/23/25 04:54 Band Neutrophils % 1 % (0-10) 08/22/25 17:29 Lymphocytes % (Manual) 7 % (13-43) L 08/23/25 04:54 Monocytes % (Manual) 3 % (4-9) L 08/23/25 04:54 Plt Morphology Comment Normal (NORMAL) 08/23/25 04:54 RBC Morphology Normal (NORMAL) 08/23/25 04:54 Sample Site Lr 08/22/25 22:24 ABG pH 7.370 (7.35-7.45) 08/22/25 22:24 ABG pCO2 33.0 mmHg (35.0-45.0) L 08/22/25 22:24 ABG pO2 62.0 mmHg (80.0-100.0) L 08/22/25 22:24 ABG HCO3 19.1 mmol/L (22-26) L 08/22/25 22:24 ABG O2 Saturation 91.0 % (90-100) 08/22/25 22:24 ABG Base Excess -5.3 mmol/L (-2.0-2.0) L 08/22/25 22:24 Coleman Test Pos 08/22/25 22:24 A-a Gradient 125.0 mmHg 08/22/25 22:24 FiO2 32.0 08/22/25 22:24 Blood Gas Comments Tova well sw 08/22/25 22:24 Sodium 138 mmol/L (136-145) 08/23/25 04:54 Corrected Sodium 140 mmol/L (136-145) 08/23/25 04:54 Potassium 4.6 mmol/L (3.5-5.1) 08/23/25 04:54 Chloride 106 mmol/L (98-107) 08/23/25 04:54 Carbon Dioxide 25.1 mmol/L (21-32) 08/23/25 04:54 BUN 5 mg/dL (7-18) L 08/23/25 04:54 Creatinine 0.71 mg/dL (0.55-1.02) 08/23/25 04:54 Est GFR (MDRD) Af Amer > 60 (>60) 08/23/25 04:54 Est GFR (MDRD) Non-Af > 60 (>60) 08/23/25 04:54 Glucose 163 mg/dL (65-99) H 08/23/25 04:54 Calcium 8.9 mg/dL (8.5-10.1) 08/23/25 04:54 Corrected Calcium TNP 08/23/25 04:54 Total Bilirubin 0.40 mg/dL (0.2-1.0) 08/23/25 04:54 AST 13 Units/L (15-37) L 08/23/25 04:54 ALT 22 Units/L (12-78) 08/23/25 04:54 Alkaline Phosphatase 69 Units/L (46-116) 08/23/25 04:54 Total Protein 7.8 g/dL (6.4-8.2) 08/23/25 04:54 Albumin 3.6 g/dL (3.4-5.0) 08/23/25 04:54 Globulin 4.2 g/dL (2.5-4.5) 08/23/25 04:54 Albumin/Globulin Ratio 0.9 Ratio (1.1-2.1) L 08/23/25 04:54 HCG, Qual Negative <10 mIU/mL 08/22/25 17:29 Review of Systems Constitutional: Weakness Eyes: No Symptoms Reported ENT: No Symptoms Reported Respiratory: Shortness of Breath and Wheezing Cardiovascular: No Symptoms Reported Gastrointestinal: No Symptoms Reported Genitourinary: No Symptoms Reported Musculoskeletal: No Symptoms Reported Skin: No Symptoms Reported Neurological: No Symptoms Reported Physical Exam Vital Signs: Vital Signs Temperature 97.4 F Temperature 97.5 F Pulse Rate [Left Radial] 98 Pulse Rate [Left Radial] 109 Pulse Rate 79 Pulse Rate 130 Respiratory Rate 20 Respiratory Rate 24 Respiratory Rate 24 Respiratory Rate 19 Blood Pressure [Left Arm] 129/72 Blood Pressure [Left Arm] 139/81 O2 Sat by Pulse Oximetry 95 O2 Sat by Pulse Oximetry 100 O2 Sat by Pulse Oximetry 100 O2 Sat by Pulse Oximetry 100 Oriented: Normal Eyes: Normal Ear: Normal Nose: Normal Throat: Normal Respiratory: Diminished Throughout and Wheezes Throughout Cardiovascular: Normal : Normal Auscultation: Bowel Sounds: Normal Palpation: Normal Tenderness: Normal Skin: Normal Musculoskeletal: Normal Psychiatric: Normal Mood Description: Calm and Appropriate Affect: Normal Speech Pattern: Clear and Appropriate Assessment/Plan (1) Respiratory failure: Qualifiers: Chronicity: acute Respiratory failure complication: hypoxia Qualified Code(s): J96.01 - Acute respiratory failure with hypoxia Status: Acute Plan: BiPAP, De-escalate to heated high flow as tolerated Continue IV steroids and IV antibiotics Continued scheduled bronchodilators (2) Asthma exacerbation: Qualifiers: Asthma severity: severe Asthma persistence: persistent Qualified Code(s): J45.51 - Severe persistent asthma with (acute) exacerbation Status: Acute Review H&P Reviewed: Yes Patient was examined?: Yes
[2025-08-23] MEDS: PULMICORT NEB TX 0.5 MG NEB SCH (21:06)
[2025-08-23] MEDS: ATIVAN 20 MG/10 ML VIAL IVP PRN (21:31)
[2025-08-24 06:42] LABS: MEAN PLATELET VOLUME 9.8 fL (7.4-11.0); RED CELL DISTRIBUTION WIDTH 14.5 % (11.6-16.5)
[2025-08-24 06:54] LABS: COR CA(FOR HYPOALB) 9.6 mg/dL (8.5-10.1); CREATININE 0.84 mg/dL (0.55-1.02); eGFR NON BLACK RACES > 60 (>60)
[2025-08-24 08:23] LABS: BASOPHILS % (MANUAL) 1 % (0-1); PLATELET MORPHOLOGY COMMENT NORMAL (NORMAL)
[2025-08-24] MEDS: TYLENOL 325 MG TAB PO PRN (19:40)
[2025-08-24] MEDS: SINGULAIR TAB 10 MG PO SCH (21:19)
[2025-08-25 06:08] LABS: MEAN PLATELET VOLUME 9.9 fL (7.4-11.0); RED CELL DISTRIBUTION WIDTH 14.0 % (11.6-16.5)
[2025-08-25 06:17] LABS: COR CA(FOR HYPOALB) 9.3 mg/dL (8.5-10.1); CREATININE 0.85 mg/dL (0.55-1.02); eGFR NON BLACK RACES > 60 (>60)
[2025-08-25] MEDS ORDERED: CONSULT PHARMACY - POTASSIUM & MAGNESIUM XX SCH (07:00)
[2025-08-25 08:09] VITALS: BP 115/58; PULSE 68; RESP 16; TEMP 98.4; O2SAT 100
[2025-08-25] MEDS: PREDNISONE TAB 10 MG PO SCH (08:40)
[2025-08-25] MEDS: MAG-OX TAB PO SCH (08:40)
[2025-08-25] MEDS: K-DUR TAB 20 MEQ PO SCH (08:40)
== END 2025-08-25 11:05 | disposition home or self-care (01) | DRG 189 ==
LOC: MED/SURG 17:05 → ER 17:05 → OBSVTOIN 19:28 → MED/SURG 20:23
PROVIDERS: ADMIT Family Medicine; ATTEND Family Medicine
DX: Z16.29 Resistance to other single specified antibiotic; B96.3 Hemophilus influenzae [H. influenzae] as the cause of diseases classified elsewhere; B97.19 Other enterovirus as the cause of diseases classified elsewhere; J96.01 Acute respiratory failure with hypoxia; R73.09 Other abnormal glucose; B97.89 Other viral agents as the cause of diseases classified elsewhere; J45.51 Severe persistent asthma with (acute) exacerbation; Z72.0 Tobacco use